=== PATIENT | female | born 1970 | race Caucasian/White ===

== ENCOUNTER 2018-01-30 17:26 | Emergency (ER) | payer MEDICARE ==
[2018-01-30 17:53] LABS: #Basophils 0.1 thou/uL (0.0-0.2); #Eosinphils 0.1 thou/uL (0.0-0.7); #Lymphocytes 3.1 thou/uL (1.20-3.40); #Monocytes 0.7 thou/uL (0.11-0.59); #Neutrophils 6.8 thou/uL (1.40-6.50); %Basophils 0.5 % (0.0-1.0); %Eosinophils 0.6 % (0.0-10.0); %Lymphocytes 28.9 % (21.0-51.0); %Monocytes 6.3 % (0.0-10.0); %Neutrophils 63.7 % (42.0-75.0); Hemoglobin 13.8 g/dL (12.0-16.0); Mean Corpuscular HGB CONC 34.5 g/dL (32.0-36.0); Mean Corpuscular Hemoglobin 32.4 pg (27.0-31.0); Mean Corpuscular Volume 94.1 fl (81.0-99.0); Mean Platelet Volume 7.3 fL (7.4-10.4); Platelet Count 242 thou/uL (130-400); RBC Distribution Width 11.2 % (11.5-14.5); Red Blood Cell (RBC) Count 4.24 mill/uL (4.20-5.40); White Blood Cell (WBC) Count 10.7 thou/uL (4.8-10.8)
[2018-01-30 18:19] LABS: ALT (SGPT) 53 U/L (8-55); AST (SGOT) 38 U/L (5-34); Albumin 4.7 g/dL (3.5-5.0); Alkaline Phosphatase 64 U/L (40-150); Anion Gap 13 mmol/L (10-20); BUN (Urea Nitrogen) 26 mg/dL (7.0-18.7); Bilirubin, Total 0.5 mg/dL (0.2-1.2); Calc. Creatinine Clearance 0 mL/min (70-130); Calcium 9.9 mg/dL (7.8-10.44); Carbon Dioxide 27 mmol/L (22-29); Chloride 99 mmol/L (98-107); Estimated GFR-MDRD 74; Globulin 4.1 g/dL (2.4-3.5); Glucose 110 mg/dL (70-105); Potassium 3.7 mmol/L (3.5-5.1); Protein, Total 8.8 g/dL (6.0-8.3); Sodium 135 mmol/L (136-145)
[2018-01-30 18:20] LABS: CKMB 0.4 ng/mL (0-6.6); Troponin I Less than 0.010 ng/mL (< 0.028)
[2018-01-30 18:45] LABS: BHCG - Serum Indeterminate (NEGATIVE); Pregs Control Background? CLEAR/WHITE (CLR/WHITE); Pregs Control Bar Appear? YES (CONTROL BAR)
--- NOTE | 2018-01-30 19:08 | RAD ---
PA AND LATERAL OF THE CHEST: 01/31/18 INDICATION: Difficulty breathing for three days. COMPARISON: Prior exam dated 07/23/16. FINDINGS: No focal consolidation, pleural effusion, or pneumothorax is evident. No acute osseous abnormality is evident. Heart size is within normal limits. IMPRESSION: No acute cardiopulmonary abnormality. POS: [facility]
[2018-01-30] MEDS ORDERED: Dexamethasone 4 mg/ml Vial ONE (20:13)
[2018-01-30 21:32] LABS: Troponin I Less than 0.010 ng/mL (< 0.028)
--- NOTE | 2018-04-07 16:33 | EKG ---
Test Reason : Blood Pressure : / mmHG Vent. Rate : 083 BPM Atrial Rate : 083 BPM P-R Int : 128 ms QRS Dur : 092 ms QT Int : 380 ms P-R-T Axes : 077 017 035 degrees QTc Int : 446 ms Normal sinus rhythm Normal ECG Confirmed by REGAN MOCTEZUMA M.D. ([id number]), senior editor [employer] ([id number]) on 04/07/2018 4:32:48 PM Referred By: Confirmed By:REGAN MOCTEZUMA M.D.
== END 2018-01-30 22:28 | disposition home or self-care (01) ==
LOC: ERS 17:26
DX: J40 Bronchitis, not specified as acute or chronic (principal); R79.89 Other specified abnormal findings of blood chemistry; I10 Essential (primary) hypertension; F41.9 Anxiety disorder, unspecified; F17.210 Nicotine dependence, cigarettes, uncomplicated; Z71.6 Tobacco abuse counseling
CPT/HCPCS: 36415; 71046; 80053; 82553; 84484; 84702; 84703; 85025; 85379; 93005; 94640; 94760; 96361; 96374; 99406; J1100; J7620

== ENCOUNTER 2018-10-04 14:10 | Emergency (ER) | payer MEDICARE ==
[2018-10-04 15:50] LABS: #Basophils 0.1 thou/uL (0.0-0.2); #Monocytes 0.7 thou/uL (0.11-0.59); #Neutrophils 12.1 thou/uL (1.40-6.50); %Basophils 0.9 % (0.0-1.0); %Eosinophils 0.3 % (0.0-10.0); %Lymphocytes 18.7 % (21.0-51.0); %Monocytes 4.1 % (0.0-10.0); %Neutrophils 76.1 % (42.0-75.0); Hemoglobin 16.9 g/dL (12.0-16.0); Mean Corpuscular HGB CONC 34.7 g/dL (32.0-36.0); Mean Corpuscular Hemoglobin 33.1 pg (27.0-31.0); Mean Corpuscular Volume 95.3 fL (78.0-98.0); Mean Platelet Volume 7.5 fL (7.4-10.4); Platelet Count 304 thou/uL (130-400); RBC Distribution Width 11.3 % (11.5-14.5); Red Blood Cell (RBC) Count 5.12 mill/uL (4.20-5.40); White Blood Cell (WBC) Count 15.9 thou/uL (4.8-10.8)
[2018-10-04] MEDS ORDERED: methylPREDNISolone Sod Succ/PF 125 MG/2 ML VIAL ONE (15:52)
[2018-10-04] MEDS ORDERED: Famotidine/PF 20 mg/2ml Vial ONE (15:52)
[2018-10-04] MEDS ORDERED: Water For Inject, Bacteriostat 30 ML ONE (15:52)
[2018-10-04] MEDS ORDERED: Ketorolac Tromethamine 30 MG/ML VIAL ONE (16:00)
[2018-10-04 16:09] LABS: ALT (SGPT) 181 U/L (8-55); AST (SGOT) 120 U/L (5-34); Alkaline Phosphatase 87 U/L (40-150); Anion Gap 19 mmol/L (10-20); BUN (Urea Nitrogen) 17 mg/dL (7.0-18.7); Bilirubin, Total 0.6 mg/dL (0.2-1.2); Calc. Creatinine Clearance 0 mL/min (70-130); Calcium 11.6 mg/dL (7.8-10.44); Carbon Dioxide 25 mmol/L (22-29); Chloride 99 mmol/L (98-107); Estimated GFR-MDRD 71; Globulin 5.2 g/dL (2.4-3.5); Glucose 89 mg/dL (70-105); Potassium 4.9 mmol/L (3.5-5.1); Protein, Total 11.6 g/dL (6.0-8.3); Sodium 138 mmol/L (136-145)
[2018-10-04 16:16] LABS: Albumin Greater than 6.2 g/dL (3.5-5.0)
[2018-10-04] MEDS ORDERED: Ondansetron PF 4 MG/2 ML Vial ONE (16:34)
--- NOTE | 2018-10-04 17:25 | RAD ---
PA AND LATERAL CHEST: Date: 10/04/18 HISTORY: Chest pain. COMPARISON: 01/30/18. FINDINGS: Cardiac silhouette and pulmonary vasculature are within normal limits. The lungs remain clear. There has been no interval change when compared to the prior exam. IMPRESSION: No acute cardiopulmonary process. POS: [facility]
--- NOTE | 2018-10-09 12:03 | EKG ---
Test Reason : Blood Pressure : / mmHG Vent. Rate : 078 BPM Atrial Rate : 078 BPM P-R Int : 136 ms QRS Dur : 092 ms QT Int : 366 ms P-R-T Axes : 078 044 040 degrees QTc Int : 417 ms Normal sinus rhythm Possible Left atrial enlargement Borderline ECG Confirmed by RODNEY KHALIL D.O. ([id number]), science editor [employer] ([id number]) on 10/09/2018 12:02:29 PM Referred By: Confirmed By:RODNEY KHALIL D.O.
== END 2018-10-04 16:54 | disposition home or self-care (01) ==
LOC: ERS 14:10
DX: T78.40XA Allergy, unspecified, initial encounter (principal); L03.317 Cellulitis of buttock; R79.89 Other specified abnormal findings of blood chemistry; R77.0 Abnormality of albumin; I10 Essential (primary) hypertension; F41.9 Anxiety disorder, unspecified; F17.210 Nicotine dependence, cigarettes, uncomplicated; Z79.899 Other long term (current) drug therapy
CPT/HCPCS: 71046; 80053; 84484; 85025; 93005; 96374; 96375; J1885; J2405; J2930; S0028

== ENCOUNTER 2019-02-25 11:23 | Emergency (ER) | payer MEDICARE, OTHER ==
--- NOTE | 2019-02-25 12:29 | RAD ---
CHEST ONE VIEW: HISTORY: Shortness of breath. Chest pain. FINDINGS: Minimal increased markings in the bases bilaterally, which appear more prominent than on the prior st udy, although there is less inspiration on today's study, which may account for this. No confluent p neumonia. No significant pleural effusion. No cardiomegaly. IMPRESSION: 1. Minimal increased markings, particularly in the infrahilar regions bilaterally, probably related to less inspiration on today's study. 2. No significant new process. POS: [facility]
[2019-02-25 12:31] LABS: #Eosinphils 0.1 thou/uL (0.0-0.7); #Lymphocytes 3.1 thou/uL (1.20-3.40); #Monocytes 0.4 thou/uL (0.11-0.59); #Neutrophils 3.5 thou/uL (1.40-6.50); %Basophils 0.6 % (0.0-1.0); %Eosinophils 1.1 % (0.0-10.0); %Lymphocytes 43.7 % (21.0-51.0); %Monocytes 5.7 % (0.0-10.0); Hemoglobin 13.3 g/dL (12.0-16.0); Mean Corpuscular Hemoglobin 33.7 pg (27.0-31.0); Mean Corpuscular Volume 96.4 fL (78.0-98.0); Mean Platelet Volume 7.5 fL (7.4-10.4); Platelet Count 222 thou/uL (130-400); RBC Distribution Width 11.1 % (11.5-14.5); Red Blood Cell (RBC) Count 3.95 mill/uL (4.20-5.40); White Blood Cell (WBC) Count 7.1 thou/uL (4.8-10.8)
--- NOTE | 2019-02-25 12:37 | CT ---
CT BRAIN WITHOUT CONTRAST: HISTORY: Confusion. Altered mental status COMPARISON: 06/15/2012 FINDINGS: No evidence of acute infarct, hemorrhage, midline shift or abnormal extra-axial fluid collections is seen. The ventricular size is appropriate and the basilar cisterns are patent. The bony calvarium is intact. The visualized paranasal sinuses and mastoid air cells are well aerated. IMPRESSION: No CT evidence of acute intracranial process.
[2019-02-25 12:53] LABS: ALT (SGPT) 36 U/L (8-55); AST (SGOT) 30 U/L (5-34); Albumin 4.4 g/dL (3.5-5.0); Alkaline Phosphatase 57 U/L (40-150); Anion Gap 9 mmol/L (10-20); BUN (Urea Nitrogen) 13 mg/dL (7.0-18.7); Bilirubin, Total 0.3 mg/dL (0.2-1.2); CK (CPK) 56 U/L (29-168); Calc. Creatinine Clearance 0 mL/min (70-130); Calcium 9.7 mg/dL (7.8-10.44); Carbon Dioxide 30 mmol/L (22-29); Chloride 103 mmol/L (98-107); Estimated GFR-MDRD 77; Glucose 100 mg/dL (70-105); Lipase 21 U/L (8-78); Potassium 4.4 mmol/L (3.5-5.1); Protein, Total 7.4 g/dL (6.0-8.3); Sodium 138 mmol/L (136-145)
[2019-02-25 14:28] LABS: Bilirubin Negative (Negative); Blood, Urine Negative (Negative); Clarity CLEAR (Clear); Glucose, Urine (Dipstick) Negative (Negative); Leukocyte Negative (Negative); Nitrite Negative (Negative); Protein, Urine (Dipstick) Negative (Neg-Trace); Specific Gravity, Urine 1.007 (1.002-1.036); Urobilinogen 0.2 mg/dL (0.2-1.0)
[2019-02-25 14:53] LABS: Amphetamine Not Detected (NotDetected); Barbiturates Screen Not Detected (NotDetected); Benzodiazepine Screen Detected (NotDetected); Cocaine Metabolite Screen Not Detected (NotDetected); Medtox Control Line Valid? VALID (VALID); Medtox Reader # READER 4; Methadone Not Detected (NotDetected); Methamphetamine Not Detected (NotDetected); Opiate Screen Detected (NotDetected); Oxycodone Screen Not Detected (NotDetected); Phencyclidine (PCP) Not Detected (NotDetected); THC/Cannabinoid Screen Not Detected (NotDetected); Tricyclic Screen Not Detected (NotDetected)
[2019-02-25] MEDS ORDERED: Acetaminophen 500 MG TAB ONE (15:51)
== END 2019-02-25 17:45 | disposition home or self-care (01) ==
LOC: ERS 11:23
DX: R07.9 Chest pain, unspecified (principal); R09.1 Pleurisy; I10 Essential (primary) hypertension; F41.9 Anxiety disorder, unspecified; F17.210 Nicotine dependence, cigarettes, uncomplicated; Z79.01 Long term (current) use of anticoagulants
CPT/HCPCS: 36415; 70450; 71045; 80053; 80306; 81003; 82550; 83690; 84484; 85025; 85379; 93005; 96360

== ENCOUNTER 2019-12-12 17:33 | Emergency (ER) | payer MEDICARE | END 2019-12-12 18:30 | disposition home or self-care (01) | LOC: ERS 17:33 | DX: M25.511 Pain in right shoulder (principal); M25.572 Pain in left ankle and joints of left foot; M25.531 Pain in right wrist; I10 Essential (primary) hypertension; F41.9 Anxiety disorder, unspecified; F17.210 Nicotine dependence, cigarettes, uncomplicated; Z71.6 Tobacco abuse counseling; W18.09XA Striking against other object with subsequent fall, initial encounter; Y99.0 Civilian activity done for income or pay | CPT/HCPCS: 99406 ==

== ENCOUNTER 2020-01-01 18:47 | Emergency (ER) | payer MEDICARE ==
[2020-01-01] MEDS ORDERED: Adacel (T-DAP) 0.5 ML SYRINGE ONE (20:18)
== END 2020-01-01 20:30 | disposition home or self-care (01) ==
LOC: ERS 18:47
DX: S70.311A Abrasion, right thigh, initial encounter (principal); Z71.6 Tobacco abuse counseling; I10 Essential (primary) hypertension; F17.210 Nicotine dependence, cigarettes, uncomplicated; W20.8XXA Other cause of strike by thrown, projected or falling object, initial encounter
CPT/HCPCS: 90471; 90715; 99406

== ENCOUNTER 2020-01-25 07:49 | Emergency (ER) | payer MEDICARE ==
[2020-01-25] MEDS ORDERED: Ketorolac Tromethamine 30 MG/ML VIAL ONE (08:25)
--- NOTE | 2020-01-25 09:28 | CT ---
CT CERVICAL SPINE: 01/25/2020 HISTORY: Fall. Neck pain. COMPARISON: 02/23/2018 TECHNIQUE: Axial CT imaging at 2.5 mm intervals through the cervical spine without contrast. Coronal and sagitta l reformatted imaging obtained. FINDINGS: The C1 ring is intact. There is degenerative change at the atlantoaxial interspace. The craniocervica l junction, atlantoaxial interspace and cervicothoracic junction demonstrate no acute findings. There is mild superior endplate irregularity at the C7 level, stable. Similar mild superior endplate irregularity is noted at T2. Findings suggest remote fractures. No prevertebral soft tissue swelling. No anterolisthesis or retrolisthesis is noted within the cervic al spine. There is mild posterior osteophyte at C5-C6. The visualized lung apices are unremarkable. There is no displaced fracture or evidence of dislocatio n seen. IMPRESSION: No acute fracture or evidence of dislocation. POS: [facility]
== END 2020-01-25 09:44 | disposition home or self-care (01) ==
LOC: ERS 07:49
DX: M54.2 Cervicalgia (principal); F41.9 Anxiety disorder, unspecified; F17.210 Nicotine dependence, cigarettes, uncomplicated; Z79.899 Other long term (current) drug therapy; X50.9XXA Other and unspecified overexertion or strenuous movements or postures, initial encounter
CPT/HCPCS: 72125; 96372; 99283; J1885; L0120

== ENCOUNTER 2021-03-18 20:58 | Emergency (ER) | payer MEDICARE, OTHER | END 2021-03-18 21:37 | disposition home or self-care (01) | LOC: ERS 20:58 | DX: S20.211A Contusion of right front wall of thorax, initial encounter (principal); F17.210 Nicotine dependence, cigarettes, uncomplicated; W01.198A Fall on same level from slipping, tripping and stumbling with subsequent striking against other object, initial encounter ==

== ENCOUNTER 2021-07-28 12:21 | Emergency (ER) | payer MEDICARE ==
[2021-07-28] MEDS ORDERED: Ketorolac Tromethamine 30 MG/ML VIAL ONE (12:42)
== END 2021-07-28 13:25 | disposition home or self-care (01) ==
LOC: ERS 12:21
DX: S70.02XA Contusion of left hip, initial encounter (principal); F17.210 Nicotine dependence, cigarettes, uncomplicated; W19.XXXA Unspecified fall, initial encounter; Y92.009 Unspecified place in unspecified non-institutional (private) residence as the place of occurrence of the external cause
CPT/HCPCS: 96372; J1885

== ENCOUNTER 2021-12-09 15:34 | Emergency (ER) | payer MEDICARE, OTHER ==
[2021-12-09] MEDS ORDERED: Ketorolac Tromethamine 30 MG/ML VIAL ONE (16:31)
[2021-12-09] MEDS ORDERED: Morphine 4 MG/ML VIAL ONE (18:55)
== END 2021-12-09 20:28 | disposition home or self-care (01) ==
LOC: ERS 15:34
DX: S32.10XA Unspecified fracture of sacrum, initial encounter for closed fracture (principal); S30.0XXA Contusion of lower back and pelvis, initial encounter; F17.210 Nicotine dependence, cigarettes, uncomplicated; W01.0XXA Fall on same level from slipping, tripping and stumbling without subsequent striking against object, initial encounter
CPT/HCPCS: 71260; 74177; 96374; 96375; J1885; J2270

== ENCOUNTER 2022-03-15 17:51 | Emergency (ER) | payer OTHER, SELFPAY ==
[2022-03-15] MEDS ORDERED: Ketorolac Tromethamine 30 MG/ML VIAL ONE (19:28)
== END 2022-03-15 19:48 | disposition home or self-care (01) ==
LOC: ERS 17:51
DX: S09.90XA Unspecified injury of head, initial encounter (principal); M25.551 Pain in right hip; M54.2 Cervicalgia; M54.50 Low back pain, unspecified; W11.XXXA Fall on and from ladder, initial encounter; F17.210 Nicotine dependence, cigarettes, uncomplicated; Z79.899 Other long term (current) drug therapy
CPT/HCPCS: 70450; 72131; 72170; 96372; J1885

== ENCOUNTER 2022-04-11 18:11 | Emergency (ER) | payer OTHER, SELFPAY ==
[2022-04-11 20:53] LABS: #Eosinphils 0.1 thou/uL (0.0-0.7); #Lymphocytes 4.4 thou/uL (1.20-3.40); #Monocytes 0.5 thou/uL (0.11-0.59); %Basophils 0.5 % (0.0-1.0); %Lymphocytes 43.5 % (21.0-51.0); %Monocytes 5.3 % (0.0-10.0); %Neutrophils 49.7 % (42.0-75.0); Hemoglobin 13.3 g/dL (12.0-16.0); Mean Corpuscular HGB CONC 34.2 g/dL (32.0-36.0); Mean Corpuscular Hemoglobin 32.8 pg (27.0-31.0); Mean Platelet Volume 9.5 fL (7.4-10.4); Platelet Count 223 thou/uL (130-400); RBC Distribution Width 10.9 % (11.5-14.5); Red Blood Cell (RBC) Count 4.06 mill/uL (4.20-5.40); White Blood Cell (WBC) Count 10.1 thou/uL (4.8-10.8)
[2022-04-11 21:17] LABS: ALT (SGPT) 32 U/L (8-55); AST (SGOT) 23 U/L (5-34); Albumin 4.3 g/dL (3.5-5.0); Alkaline Phosphatase 61 U/L (40-110); Anion Gap 15 mmol/L (10-20); BUN (Urea Nitrogen) 20 mg/dL (9.8-20.1); Bilirubin, Total 0.2 mg/dL (0.2-1.2); Calc. Creatinine Clearance 0 mL/min (70-130); Calcium 10.2 mg/dL (7.8-10.44); Carbon Dioxide 25 mmol/L (22-29); Chloride 105 mmol/L (98-107); Globulin 3.8 g/dL (2.4-3.5); Glucose 112 mg/dL (70-105); Protein, Total 8.1 g/dL (6.0-8.3); Sodium 141 mmol/L (136-145)
== END 2022-04-11 21:50 | disposition home or self-care (01) ==
LOC: ERS 18:11
DX: G62.9 Polyneuropathy, unspecified (principal); Z87.891 Personal history of nicotine dependence
CPT/HCPCS: 72131; 80053; 85025; 86140; 93005

== ENCOUNTER 2022-07-05 15:27 | Emergency (ER) | payer MEDICARE | END 2022-07-05 16:51 | disposition home or self-care (01) | LOC: ERS 15:27 | DX: S60.222A Contusion of left hand, initial encounter (principal); F17.210 Nicotine dependence, cigarettes, uncomplicated; W19.XXXA Unspecified fall, initial encounter ==

== ENCOUNTER 2022-07-25 17:31 | Emergency (ER) | payer OTHER, MEDICARE ==
[2022-07-25 18:27] LABS: #Basophils 0.1 thou/uL (0.0-0.2); #Eosinphils 0.1 thou/uL (0.0-0.7); #Lymphocytes 3.8 thou/uL (1.20-3.40); #Monocytes 0.7 thou/uL (0.11-0.59); #Neutrophils 4.8 thou/uL (1.40-6.50); %Basophils 0.9 % (0.0-1.0); %Eosinophils 1.4 % (0.0-10.0); %Monocytes 7.2 % (0.0-10.0); %Neutrophils 50.5 % (42.0-75.0); Mean Corpuscular HGB CONC 34.2 g/dL (32.0-36.0); Mean Corpuscular Hemoglobin 33.3 pg (27.0-31.0); Mean Corpuscular Volume 97.3 fL (78.0-98.0); Mean Platelet Volume 8.5 fL (7.4-10.4); Platelet Count 224 thou/uL (130-400); Red Blood Cell (RBC) Count 4.21 mill/uL (4.20-5.40); White Blood Cell (WBC) Count 9.5 thou/uL (4.8-10.8)
[2022-07-25 18:54] LABS: ALT (SGPT) 38 U/L (8-55); AST (SGOT) 32 U/L (5-34); Albumin 4.8 g/dL (3.5-5.0); Alkaline Phosphatase 64 U/L (40-110); Anion Gap 14 mmol/L (10-20); BUN (Urea Nitrogen) 25 mg/dL (9.8-20.1); Bilirubin, Total 0.3 mg/dL (0.2-1.2); Calc. Creatinine Clearance 0 mL/min (70-130); Calcium 9.7 mg/dL (7.8-10.44); Carbon Dioxide 24 mmol/L (22-29); Chloride 106 mmol/L (98-107); Estimated GFR 89; Globulin 4.3 g/dL (2.4-3.5); Glucose 88 mg/dL (70-105); Lipase 41 U/L (8-78); Potassium 4.3 mmol/L (3.5-5.1); Protein, Total 9.1 g/dL (6.0-8.3); Sodium 140 mmol/L (136-145)
[2022-07-25] MEDS ORDERED: Ketorolac Tromethamine 30 MG/ML VIAL ONE (19:12)
[2022-07-25] MEDS ORDERED: HYDROcodone/Acetaminophen 5/325 mg Tablet ONE (19:12)
== END 2022-07-25 19:49 | disposition home or self-care (01) ==
LOC: ERS 17:31
DX: S09.90XA Unspecified injury of head, initial encounter (principal); S30.0XXA Contusion of lower back and pelvis, initial encounter; R07.89 Other chest pain; M54.2 Cervicalgia; F17.210 Nicotine dependence, cigarettes, uncomplicated; W18.30XA Fall on same level, unspecified, initial encounter; Y92.481 Parking lot as the place of occurrence of the external cause
CPT/HCPCS: 70450; 71045; 72125; 72220; 80053; 83690; 84484; 85025; 93005; 96374; J1885

== ENCOUNTER 2022-08-01 11:18 | Emergency (ER) | payer OTHER, MEDICARE ==
[2022-08-01 14:04] LABS: Bacteria/HPF 4+ HPF (None Seen); Bilirubin Negative (Negative); Blood, Urine Negative (Negative); Clarity Clear (Clear); Glucose, Urine (Dipstick) Normal (Negative); Ketone, Urine Negative (Negative); Leukocyte 250 Leu/uL (Negative); Nitrite 2+ (Negative); Protein, Urine (Dipstick) Negative (Neg-Trace); RBC/HPF 0-3 HPF (0-3); Specific Gravity, Urine 1.011 (1.002-1.036); Squamous Epithelial 0-3 HPF (0-3); Urobilinogen Normal mg/dL (Less than 2)
== END 2022-08-01 13:51 | disposition home or self-care (01) ==
LOC: ERS 11:18
DX: S06.9X9A Unspecified intracranial injury with loss of consciousness of unspecified duration, initial encounter (principal); N39.0 Urinary tract infection, site not specified; W01.10XA Fall on same level from slipping, tripping and stumbling with subsequent striking against unspecified object, initial encounter; F17.210 Nicotine dependence, cigarettes, uncomplicated
CPT/HCPCS: 70450; 72100; 72125; 81003; 81015

== ENCOUNTER 2022-12-20 22:31 | Emergency (ER) | payer MEDICARE ==
[2022-12-20] MEDS ORDERED: Ketorolac Tromethamine 30 MG/ML VIAL ONE (23:26)
== END 2022-12-21 00:16 | disposition home or self-care (01) ==
LOC: ERS 22:31
DX: R10.2 Pelvic and perineal pain (principal); F17.210 Nicotine dependence, cigarettes, uncomplicated
CPT/HCPCS: 72170; 96372; J1885

== ENCOUNTER 2023-05-25 02:01 | Emergency (ER) | payer OTHER, MEDICARE ==
[2023-05-25] MEDS ORDERED: Ketorolac Tromethamine 30 MG/ML VIAL ONE (02:14)
== END 2023-05-25 03:27 | disposition home or self-care (01) ==
LOC: ERS 02:01
DX: S40.011A Contusion of right shoulder, initial encounter (principal); F17.210 Nicotine dependence, cigarettes, uncomplicated; W01.0XXA Fall on same level from slipping, tripping and stumbling without subsequent striking against object, initial encounter
CPT/HCPCS: 96372; J1885

== ENCOUNTER 2023-06-28 08:37 | Emergency (ER) | payer MEDICARE ==
[2023-06-28] MEDS ORDERED: Ketorolac Tromethamine 30 MG/ML VIAL ONE (09:28)
== END 2023-06-28 11:05 | disposition home or self-care (01) ==
LOC: ERS 08:37
DX: S09.90XA Unspecified injury of head, initial encounter (principal); M25.511 Pain in right shoulder; F17.210 Nicotine dependence, cigarettes, uncomplicated; W18.30XA Fall on same level, unspecified, initial encounter
CPT/HCPCS: 70450; 96372; J1885

== ENCOUNTER 2024-05-01 13:31 | Observation (INO) | payer MEDICARE, OTHER ==
[2024-05-01] MEDS ORDERED: Morphine 2 MG/ML VIAL ONE (13:47)
[2024-05-01] MEDS ORDERED: Ondansetron PF 4 MG/2 ML Vial ONE ×2 (13:47→15:35)
[2024-05-01 13:59] LABS: #Basophils Less than 0.03 10x3/uL (0.0-0.2); %Basophils 0.2 % (0.0-1.0); %Eosinophils 0.4 % (0.0-10.0); %Lymphocytes 32.8 % (21.0-51.0); %Neutrophils 60.2 % (42.0-75.0); Hematocrit 39.1 % (36.0-47.0); Hemoglobin 13.7 g/dL (12.0-16.0); Mean Corpuscular Hemoglobin 32.6 pg (27.0-31.0); Mean Corpuscular Volume 93.1 fL (78.0-98.0); Mean Platelet Volume 10.2 fL (7.4-10.4); Platelet Count 240 10x3/uL (130-400); RBC Distribution Width 11.7 % (11.5-14.5)
[2024-05-01 14:13] LABS: BHCG - Serum Negative (NEGATIVE); Pregs Control Background? CLEAR/WHITE (CLR/WHITE); Pregs Control Bar Appear? YES (CONTROL BAR)
[2024-05-01 14:21] LABS: ALT (SGPT) 37 U/L (8-55); AST (SGOT) 28 U/L (5-34); Albumin 4.5 g/dL (3.5-5.0); Alkaline Phosphatase 47 U/L (40-110); Anion Gap 16 mmol/L (10-20); BUN (Urea Nitrogen) 14 mg/dL (9.8-20.1); Bilirubin, Total 0.4 mg/dL (0.2-1.2); Calc. Creatinine Clearance 0 mL/min (70-130); Calcium 10.2 mg/dL (7.8-10.44); Carbon Dioxide 24 mmol/L (22-29); Chloride 104 mmol/L (98-107); Estimated GFR 80; Glucose 99 mg/dL (70-105); Magnesium 1.9 mg/dL (1.6-2.6); Potassium 4.1 mmol/L (3.5-5.1); Protein, Total 8.5 g/dL (6.0-8.3); Sodium 140 mmol/L (136-145)
[2024-05-01 14:24] LABS: Troponin I Less than 0.010 ng/mL (< 0.028)
[2024-05-01] MEDS ORDERED: Ketorolac Tromethamine 30 MG (1 mL) VIAL ONE (15:35)
[2024-05-01] MEDS ORDERED: HYDROcodone/Acetaminophen 5/325 mg Tablet ONE (15:35)
[2024-05-01] MEDS ORDERED: Ondansetron PF 4 MG/2 ML Vial IVP PRN (18:08)
[2024-05-01] MEDS: Acetaminophen 325 MG TAB PO SCH (22:51)
[2024-05-01] MEDS: Acetaminophen/Codeine 30-300mg Tablet PO SCH (22:51)
[2024-05-02 00:18] VITALS: BMI 25.4
[2024-05-02] MEDS ORDERED: Acetaminophen 325 MG TAB PO SCH (00:30)
[2024-05-02] MEDS ORDERED: Nicotine 14 MG PATCH ONE (01:20)
[2024-05-02] MEDS ORDERED: ALPRAZolam 1 MG TAB ONE ×2 (01:20→09:34)
[2024-05-02] MEDS ORDERED: Famotidine 20 MG TAB ONE ×2 (01:21→09:35)
[2024-05-02] MEDS ORDERED: tiZANidine HCl 4 MG TAB ONE ×2 (01:21→09:34)
[2024-05-02] MEDS ORDERED: Acetaminophen 650 MG/20.3 ML UDCUP ONE (01:21)
[2024-05-02] MEDS ORDERED: levETIRAcetam 500 MG TAB ONE (01:21)
[2024-05-02] MEDS: Nicotine 14 MG PATCH TD SCH ×2 (01:28)
[2024-05-02] MEDS: Acetaminophen/Codeine 30-300mg Tablet PO SCH (01:28)
[2024-05-02] MEDS: Famotidine 20 MG TAB PO SCH ×2 (01:28)
[2024-05-02] MEDS: tiZANidine HCl 4 MG TAB PO SCH ×2 (01:28)
[2024-05-02] MEDS: levETIRAcetam 500 MG TAB PO SCH ×2 (01:28)
[2024-05-02] MEDS: ALPRAZolam 1 MG TAB PO SCH ×2 (01:28)
[2024-05-02] MEDS: Acetaminophen 325 MG TAB PO SCH (01:28)
[2024-05-02 04:41] LABS: #Basophils Less than 0.03 10x3/uL (0.0-0.2); %Basophils 0.3 % (0.0-1.0); %Eosinophils 1.4 % (0.0-10.0); %Lymphocytes 48.1 % (21.0-51.0); %Monocytes 8.2 % (0.0-10.0); %Neutrophils 41.6 % (42.0-75.0); Hematocrit 35.1 % (36.0-47.0); Hemoglobin 11.8 g/dL (12.0-16.0); Mean Corpuscular HGB CONC 33.6 g/dL (32.0-36.0); Mean Corpuscular Hemoglobin 32.7 pg (27.0-31.0); Mean Corpuscular Volume 97.2 fL (78.0-98.0); Platelet Count 198 10x3/uL (130-400); RBC Distribution Width 11.8 % (11.5-14.5); Red Blood Cell (RBC) Count 3.61 mill/uL (4.20-5.40)
[2024-05-02 05:15] LABS: Anion Gap 12 mmol/L (10-20); BUN (Urea Nitrogen) 16 mg/dL (9.8-20.1); Calc. Creatinine Clearance 79 mL/min (70-130); Calcium 9.1 mg/dL (7.8-10.44); Carbon Dioxide 24 mmol/L (22-29); Chloride 108 mmol/L (98-107); Estimated GFR 82; Glucose 98 mg/dL (70-105); Potassium 3.9 mmol/L (3.5-5.1); Sodium 140 mmol/L (136-145)
[2024-05-02] MEDS: Mirtazapine 15 MG TAB PO SCH ×2 (07:20→10:47)
[2024-05-02] MEDS ORDERED: Acetaminophen/Codeine 30-300mg Tablet ONE (09:27)
[2024-05-02] MEDS ORDERED: Enoxaparin 40 MG (0.4 mL) SYRINGE ONE (09:27)
[2024-05-02] MEDS: Enoxaparin 40 MG (0.4 mL) SYRINGE SC SCH (10:10)
[2024-05-02] MEDS ORDERED: Acetaminophen 325 MG TAB ONE (10:16)
[2024-05-02 10:51] VITALS: BP 111/60; TEMP 98.1
== END 2024-05-02 11:25 | disposition home or self-care (01) ==
LOC: ERS 13:31 → ERHOLD 17:47
PROVIDERS: ADMIT Internal Medicine; ATTEND Family Medicine
DX: R55 Syncope and collapse (principal); F41.9 Anxiety disorder, unspecified; M54.9 Dorsalgia, unspecified; R05.9 Cough, unspecified; G89.29 Other chronic pain; F17.210 Nicotine dependence, cigarettes, uncomplicated; R53.1 Weakness; H53.8 Other visual disturbances; Z79.899 Other long term (current) drug therapy
CPT/HCPCS: 70450; 71045; 71260; 72125; 73030; 74177; 80048; 80053; 82962; 83735; 84484; 84703; 85025 ×2; 93005; 96374; 96375; 96376; 99285; J1650; J1885; J2272; J2405; 36415; 36416; 96372; G0378

== ENCOUNTER 2024-07-13 19:08 | Emergency (ER) | payer MEDICARE | END 2024-07-13 21:04 | disposition home or self-care (01) | LOC: ERS 19:08 | DX: S93.401A Sprain of unspecified ligament of right ankle, initial encounter (principal); F17.210 Nicotine dependence, cigarettes, uncomplicated; X50.1XXA Overexertion from prolonged static or awkward postures, initial encounter | CPT/HCPCS: 99283 ==

== ENCOUNTER 2024-08-13 03:42 | Emergency (ER) | payer MEDICARE, OTHER ==
[2024-08-13 05:11] LABS: #Basophils 0.04 10x3/uL (0.0-0.2); %Basophils 0.5 % (0.0-1.0); %Eosinophils 2.6 % (0.0-10.0); %Lymphocytes 42.5 % (21.0-51.0); %Monocytes 7.4 % (0.0-10.0); %Neutrophils 46.8 % (42.0-75.0); Hematocrit 38.5 % (36.0-47.0); Hemoglobin 13.2 g/dL (12.0-16.0); Mean Corpuscular HGB CONC 34.3 g/dL (32.0-36.0); Mean Corpuscular Hemoglobin 32.2 pg (27.0-31.0); Mean Corpuscular Volume 93.9 fL (78.0-98.0); Mean Platelet Volume 10.1 fL (7.4-10.4); Platelet Count 242 10x3/uL (130-400); RBC Distribution Width 11.5 % (11.5-14.5)
[2024-08-13 05:22] LABS: ALT (SGPT) 37 U/L (8-55); AST (SGOT) 30 U/L (5-34); Albumin 3.9 g/dL (3.5-5.0); Alkaline Phosphatase 63 U/L (40-110); Anion Gap 14 mmol/L (10-20); BUN (Urea Nitrogen) 23 mg/dL (9.8-20.1); Bilirubin, Total 0.2 mg/dL (0.2-1.2); Calc. Creatinine Clearance 0 mL/min (70-130); Calcium 9.6 mg/dL (7.8-10.44); Carbon Dioxide 22 mmol/L (22-29); Chloride 104 mmol/L (98-107); Estimated GFR 76; Globulin 4.1 g/dL (2.4-3.5); Glucose 100 mg/dL (70-105); Lipase 38 U/L (8-78); Potassium 4.3 mmol/L (3.5-5.1); Sodium 136 mmol/L (136-145)
[2024-08-13] MEDS ORDERED: Iopamidol-370 76% 500 ML MDV (1 ML CHARGE) ONE (10:11)
== END 2024-08-13 06:03 | disposition home or self-care (01) ==
LOC: ERS 03:42
DX: M25.551 Pain in right hip (principal); M25.511 Pain in right shoulder; M25.571 Pain in right ankle and joints of right foot; R10.9 Unspecified abdominal pain; F17.210 Nicotine dependence, cigarettes, uncomplicated; V43.52XA Car driver injured in collision with other type car in traffic accident, initial encounter; W22.10XA Striking against or struck by unspecified automobile airbag, initial encounter; Y93.89 Activity, other specified
CPT/HCPCS: 36415; 70450; 71045; 71260; 72125; 72170; 74177; 80053; 83690; 85025; 93005; Q9967